=== PATIENT | female | born 2000 | race Caucasian/White ===

== ENCOUNTER 2020-04-16 12:07 | Emergency (ER) | payer BC, OTHER, SELFPAY ==
[~2020-04-16] VITALS: Ht 165.1 cm; Wt 80.6 kg
[2020-04-16] MEDS ORDERED: ACETAMINOPHEN 325 MG TABLET PO ONE (13:00)
--- NOTE | 2020-04-16 13:00 | NUR ---
Pt arrives to ed with global headach and left arm numbness. Pt reports she has had this before and the arm numbness resolves, however today she is concerned since she took 600mg of motrin @1030 and it got rid of the pain but not her numbness. Pt reports hx of a minor stroke freshmen year in highschool. Pt would like to know she is not having a stroke. Pt has gross neuro intact and is able to move left arm well.
--- NOTE | 2020-04-16 13:14 | NUR ---
Pt to MRI
--- NOTE | 2020-04-16 13:19 | NUR ---
Report to [facility]
[2020-04-16] MEDS ORDERED: ACETAMINOPHEN 325 MG TABLET ONE (13:47)
[2020-04-16 13:49] VITALS: BP 95/59
--- NOTE | 2020-04-16 13:51 | NUR ---
PATIENT BACK FROM MRI. PATIENT C/O 12/28 CHANDRA. 1,000 MG TYLENOL GIVEN.NO FURTHER NEEDS AT THIS TIME.
--- NOTE | 2020-04-16 14:15 | NUR ---
Patient given discharge instructions and they have confirmed that they understand the instructions. All patient belongings gathered by patient. Patient ambulatory with steady gait.
== END 2020-04-16 14:17 | disposition home or self-care (01) ==
LOC: ED 14:06
DX: G43.109 Migraine with aura, not intractable, without status migrainosus (principal); M54.2 Cervicalgia; R42 Dizziness and giddiness
CPT/HCPCS: 70551; 99284

== ENCOUNTER 2020-04-21 03:30 | Emergency (ER) | payer OTHER ==
[~2020-04-21] VITALS: Ht 165.1 cm; Wt 79.8 kg
--- NOTE | 2020-04-21 03:53 | NUR ---
PT TO ED WITH LOW BACK PAIN STARTING APPX 24HRS AGO. PT DENIES TRAUMA, REPORTS INTERMITTENT PAIN AROUND LEFT FLANK RADIATING TO UPPER BUTTOCKS. PT DENIES N/V/D OR ABDMINAL PAIN, DENIES PAIN OR DIFFICULTY URINATING OR CHANGE IN VOID PATTERN. PT DENIES ANY OTHER MEDICAL C/O AT THIS TIME. PT PLACED ON MONITORING, CALL LIGHT WITHIN REACH, ALL SAFETY MEASURES IN PLACE, FAMILY AT BS FOR SUPPORT. ERP IN ROOM TO EVAL PT.
[2020-04-21] MEDS ORDERED: DIAZEPAM 5 MG/ML, 2ML IVPush ONE (04:00)
[2020-04-21] MEDS ORDERED: KETOROLAC 30 MG/1 ML IVPush ONE (04:00)
[2020-04-21] MEDS ORDERED: ONDANSETRON 2MG/ML, 2ML IVPush ONE (04:00)
[2020-04-21] MEDS ORDERED: KETOROLAC 30 MG/1 ML ONE (04:02)
[2020-04-21] MEDS ORDERED: ONDANSETRON 2MG/ML, 2ML ONE (04:02)
[2020-04-21] MEDS ORDERED: ENALAPRILAT 1.25 MG/ML, 1ML ONE (04:02)
--- NOTE | 2020-04-21 04:17 | NUR ---
IV PLACED, PT MEDICATED PER MAR, LABS DRAWN AND SENT TO LAB, PT ATTEMPTING TO PROVIDE UA AT THIS TIME. UPDATED ON POC.
[2020-04-21 04:30] LABS: BASOPHILS # (AUTO) 0.03 x10^3/uL (0-0.1); BASOPHILS % (AUTO) 0 % (0-1); EOSINOPHILS # (AUTO) 0.13 x10^3/uL (0-0.4); EOSINOPHILS % (AUTO) 1 % (1-7); LYMPHOCYTES % (AUTO) 13 % (22-44); MD NO; MEAN CORPUSCULAR HEMOGLOBIN 31.6 pg (27.0-34.8); MEAN CORPUSCULAR VOLUME 95.8 fL (80-100); MEAN PLATELET VOLUME 11.2 fL (7.4-10.4); MONOCYTES % (AUTO) 6 % (2-9); NEUTROPHILS # (AUTO) 7.68 x10^3/uL (1.8-6.8); NEUTROPHILS % (AUTO) 80 % (42-75); PLATELET COUNT 150 x10^3/uL (130-400); RED BLOOD COUNT 4.73 x10^6/uL (3.82-5.3); RED CELL DISTRIBUTION WIDTH 13.5 % (9.6-15.2)
--- NOTE | 2020-04-21 04:32 | NUR ---
PT PROVIDED UA, SENT TO LAB. PT UPDATED ON POC, MONITORING REAPPLIED, CALL LIGHT WITHIN REACH. FAMILY AT FOR SUPPORT.
[2020-04-21 04:40] LABS: ALANINE AMINOTRANSFERASE 20 U/L (12-78); ALBUMIN 3.7 g/dL (3.4-5.0); ANION GAP 9 mmol/L (5-15); CALCIUM 8.5 mg/dL (8.5-10.1); CHLORIDE 110 mmol/L (98-107); CREATININE 0.79 mg/dL (0.55-1.02)
[2020-04-21 04:44] LABS: ALKALINE PHOSPHATASE 92 U/L (45-117); BILIRUBIN,TOTAL 1.9 mg/dL (0.2-1.0); TOTAL PROTEIN 7.3 g/dL (6.4-8.2)
[2020-04-21 05:00] LABS: MICROSCOPIC INDICATED
--- NOTE | 2020-04-21 05:18 | NUR ---
PT UPDATED ON POC, DENIES FURTHER NEEDS AT THIS TIME.
[2020-04-21] MEDS ORDERED: CEFTRIAXONE PMX 1GM/50ML 50 ML IV ONE (06:00)
[2020-04-21] MEDS ORDERED: CEFTRIAXONE PMX 1GM/50ML 50 ML ONE (06:29)
--- NOTE | 2020-04-21 06:36 | NUR ---
PT RESTING ON CARMINE WITH FAMILY AT BS. UPDATED ON POC. CALL LIGHT WITHIN REACH, MONITORING IN PLACE.
--- NOTE | 2020-04-21 06:52 | NUR ---
REPORT TO SHAY ZIMMER.
[2020-04-21 07:08] VITALS: BP 93/43
--- NOTE | 2020-04-21 07:09 | NUR ---
Patient/Caregiver given discharge instructions and they have confirmed that they understand the instructions. Patient ambulatory with steady gait.
== END 2020-04-21 07:10 | disposition home or self-care (01) ==
LOC: ED 04:26
DX: S39.012A Strain of muscle, fascia and tendon of lower back, initial encounter (principal); N30.01 Acute cystitis with hematuria; G43.909 Migraine, unspecified, not intractable, without status migrainosus; Z87.442 Personal history of urinary calculi; X58.XXXA Exposure to other specified factors, initial encounter; Y93.89 Activity, other specified; Y92.89 Other specified places as the place of occurrence of the external cause; Y99.8 Other external cause status
CPT/HCPCS: 36415; 74176; 80053; 81001; 83690; 84703; 85025; 87077; 87086; 96365; 96375; 99285; J0696; J1885; J2405; J3360; 87186

== ENCOUNTER 2020-05-19 02:06 | Emergency (ER) | payer OTHER ==
[~2020-05-19] VITALS: Ht 165.1 cm; Wt 80.9 kg
--- NOTE | 2020-05-19 02:43 | NUR ---
Pt states she woke up approx 2 hours ago "from a deep sleep" with muscle spasms "across my whole body but worse in my shoulders and sometimes it goes right to my L shoulder." Pt states she was seen in ED x3 weeks for lower back pain, dx with UTI and prescribed muscle relaxant/abx. Pt states she did not take muscle relaxant tonight d/t positive pregancy test x2 weeks. LMP "beginning of April I think." Neurologically in tact, see neuro assessment for additional details. Able to move all extremities without difficulty, good strength noted to all 4 extremities. Denies numbness/tingling. Denies incontinence. Ambulated independently, steady gait
[2020-05-19 02:58] LABS: MEAN CORPUSCULAR HEMOGLOBIN 31.6 pg (27.0-34.8); MEAN CORPUSCULAR HGB CONC 34.2 g/dL (32.4-35.8); MEAN CORPUSCULAR VOLUME 92.3 fL (80-100); MEAN PLATELET VOLUME 9.6 fL (7.4-10.4); PLATELET COUNT 111 x10^3/uL (130-400); RED BLOOD COUNT 4.28 x10^6/uL (3.82-5.3); RED CELL DISTRIBUTION WIDTH 13.3 % (9.6-15.2)
[2020-05-19] MEDS ORDERED: CYCLOBENZAPRINE 10 MG TABLET PO ONE (03:00)
[2020-05-19 03:09] LABS: ALANINE AMINOTRANSFERASE 50 U/L (12-78); ALBUMIN 3.5 g/dL (3.4-5.0); ANION GAP 6 mmol/L (5-15); CALCIUM 9.2 mg/dL (8.5-10.1); CHLORIDE 109 mmol/L (98-107); CREATININE 0.71 mg/dL (0.55-1.02)
[2020-05-19] MEDS ORDERED: CYCLOBENZAPRINE 10 MG TABLET ONE (03:13)
[2020-05-19 03:14] LABS: ALKALINE PHOSPHATASE 120 U/L (45-117); TOTAL PROTEIN 6.8 g/dL (6.4-8.2)
--- NOTE | 2020-05-19 03:45 | NUR ---
Break RN: assumed care of pt on behalf of primary RN for lunch break only. urine sample collected and sent. pt sitting up on gurney on her cell phone. no apparent distress. SO at bedside
[2020-05-19 04:04] LABS: BASOPHILS # (AUTO) 0.03 x10^3/uL (0-0.1); BASOPHILS % (AUTO) 1 % (0-1); EOSINOPHILS # (AUTO) 0.04 x10^3/uL (0-0.4); EOSINOPHILS % (AUTO) 1 % (1-7); LYMPHOCYTES # (AUTO) 1.79 x10^3/uL (1-3.4); LYMPHOCYTES % (AUTO) 38 % (22-44); MD SCAN; MONOCYTES % (AUTO) 8 % (2-9); NEUTROPHILS # (AUTO) 2.51 x10^3/uL (1.8-6.8); NEUTROPHILS % (AUTO) 53 % (42-75)
[2020-05-19 04:19] LABS: MICROSCOPIC AUTO
[2020-05-19] MEDS ORDERED: CIPROFLOXACIN 500 MG TABLET ONE (04:41)
[2020-05-19 04:50] VITALS: BP 100/52
[2020-05-19] MEDS ORDERED: CIPROFLOXACIN 500 MG TABLET PO ONE (05:00)
== END 2020-05-19 05:08 | disposition home or self-care (01) ==
LOC: ED 02:36
DX: O23.11 Infections of bladder in pregnancy, first trimester (principal); M62.838 Other muscle spasm; G43.909 Migraine, unspecified, not intractable, without status migrainosus; Z3A.01 Less than 8 weeks gestation of pregnancy
CPT/HCPCS: 36415; 80053; 81001; 84703; 85025; 87077; 87086; 87186; 99283

== ENCOUNTER 2020-11-13 10:43 | Emergency (ER) | payer OTHER ==
[~2020-11-13] VITALS: Ht 165.1 cm; Wt 90.0 kg
--- NOTE | 2020-11-13 11:12 | NUR ---
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
--- NOTE | 2020-11-13 11:14 | NUR ---
JOSE JULES AT BS NOW.
[2020-11-13] MEDS ORDERED: KETOROLAC 30 MG/1 ML ONE (11:23)
[2020-11-13] MEDS ORDERED: DIAZEPAM 5 MG TABLET ONE (11:23)
[2020-11-13] MEDS ORDERED: DIAZEPAM 5 MG TABLET PO ONE (11:30)
[2020-11-13] MEDS ORDERED: KETOROLAC 30 MG/1 ML IM ONE (11:30)
--- NOTE | 2020-11-13 11:31 | NUR ---
XR DONE AT BS. PT MEDICATED PER ORDERS, UNDERSTANDS POC.
[2020-11-13] MEDS ORDERED: CYCL10TA2 PO (11:56)
[2020-11-13] MEDS ORDERED: METH750T87 PO (11:56)
--- NOTE | 2020-11-13 12:08 | NUR ---
PT FEELS A LITTLE GROGGY AFTER MEDS, PAIN RESOLVED. STATES HER MOM CAN PICK HER UP. TO XR VIA [facility] NOW.
--- NOTE | 2020-11-13 12:50 | NUR ---
D/C INSTRUCTIONS, MEDS & F/U APPT RV'WD WITH PT, SHE VERBALIZES UNDERSTANDING. RX GIVEN X2. PT AMBULATED OUT OF ED WITHOUT DIFFICULTY, STATES HER MOM IS HERE TO PICK HER UP.
[2020-11-13 12:51] VITALS: BP 92/55
== END 2020-11-13 12:52 | disposition home or self-care (01) ==
LOC: ED 12:30
DX: S46.811A Strain of other muscles, fascia and tendons at shoulder and upper arm level, right arm, initial encounter (principal); X58.XXXA Exposure to other specified factors, initial encounter; Y93.89 Activity, other specified; Y92.89 Other specified places as the place of occurrence of the external cause; Y99.8 Other external cause status
CPT/HCPCS: 73030; 96372; 99283; J1885